=== PATIENT | male | born 1935 | race Caucasian/White ===

== ENCOUNTER 2021-10-06 08:02 | Observation (INO) ==
[2021-10-06] MEDS ORDERED: 0.9 % Sodium Chloride 1,000 ML IVC ONE (08:49)
[2021-10-06] MEDS ORDERED: Pantoprazole 40 MG VIAL IVP ONE (08:49)
[2021-10-06 09:07] LABS: Basophils % 0.5 %; Eosinophils # 0.1 K/mcL (0.0-0.6); Eosinophils % 1.5 %; Hematocrit 30.9 % (37.5-50.1); Hemoglobin 10.6 g/dL (12.9-16.9); Immature Granulocytes % 0.5 % (0-4); Lymphocytes # 1.1 K/mcL (0.6-4.6); Mean Corpuscular HGB Conc 34.3 g/dL (31.6-35.5); Mean Corpuscular Hemoglobin 32.5 pg (28.0-33.3); Mean Corpuscular Volume 94.8 fL (83.0-100.0); Mean Platelet Volume 10.1 fL (9.4-12.4); Monocytes # 0.7 K/mcL (0.0-1.3); Monocytes % 9.8 %; Neutrophils # 4.8 K/mcL (1.6-8.9); Platelet Count 183 K/mcL (140-400); Red Blood Count 3.26 M/mcL (4.19-5.50); Red Cell Distribution Width 13.2 % (11.5-14.5); Segmented Neutrophils % 71.7 %; White Blood Count 6.6 K/mcL (4.3-11.1)
[2021-10-06 09:18] LABS: INR 1.1; Prothrombin Time 11.8 Seconds (9.4-12.1)
[2021-10-06 09:20] LABS: Activated Partial Thrombo Time 27.1 Seconds (26.0-36.0)
[2021-10-06 09:29] LABS: BUN/Creatinine Ratio 16 (6-26); Blood Urea Nitrogen 16 mg/dL (8-23); Calcium 8.9 mg/dL (8.6-10.3); Carbon Dioxide 25 mEq/L (23-29); Chloride 107 mEq/L (98-107); Glucose 99 mg/dL (70-105); Osmolality,Calculated 285 (280-300); Potassium 3.7 mEq/L (3.5-5.1); Sodium 137 mEq/L (136-145); eGFR For African Americans > 60 (> 60); eGFR For Non-African Americans > 60 (> 60)
[2021-10-06] MEDS ORDERED: Iopamidol - 370 500 ML MLS IVP ONE (10:25)
[2021-10-06] MEDS ORDERED: Melatonin 3 MG TABLET PO PRN (13:11)
[2021-10-06] MEDS ORDERED: Naloxone 0.4 MG/ML INJ IVP PRN (13:11)
[2021-10-06] MEDS ORDERED: Ondansetron 4 MG/2 ML VIAL IVP PRN (13:11)
[2021-10-06] MEDS ORDERED: MOM Conc 10 ML UD.LIQ PO PRN (13:11)
[2021-10-06] MEDS ORDERED: 0.9 % Sodium Chloride 1,000 ML IVC SCH (13:15)
[2021-10-06 13:36] VITALS: BP 148/76; PULSE 83; TEMP 97.9; O2SAT 93
[2021-10-06 13:57] LABS: Hematocrit 24.5 % (37.5-50.1)
[2021-10-06 14:01] LABS: Hemoglobin 8.4 g/dL (12.9-16.9)
[2021-10-06] MEDS ORDERED: SODIUM CHLORIDE/NAHCO3/KCL/PEG 4,000 ML SOLN.RECON PO ONE (17:00)
[2021-10-06] MEDS ORDERED: Pantoprazole 40 MG VIAL IVP SCH (18:00)
== END 2021-10-06 17:34 | disposition home health service (06) ==
LOC: EMEROOARM 08:02 → 3BNU 08:02
PROVIDERS: ADMIT Internal Medicine; ATTEND Internal Medicine